=== PATIENT | female | born 1960 | race Two or more races ===

== ENCOUNTER 2021-02-12 23:54 | Emergency (ER) | payer MEDICAID ==
[~2021-02-12] VITALS: Ht 160 cm; Wt 59.0 kg
[2021-02-12 23:54] VITALS: BP_SYST 151
--- NOTE | 2021-02-12 23:54 | NUR ---
Patient ambulatory to bed 6 for evaluation
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
--- NOTE | 2021-02-13 00:19 | NUR ---
JOVANI Valladares at bedside examining patient.
[2021-02-13] MEDS ORDERED: OXYCODONE/ACETAMINOPHEN *10*mg/325 mg TABLET ONE (00:44)
[2021-02-13] MEDS: OXYCODONE/ACETAMINOPHEN 5-325 TABLET PO ONE (00:47)
--- NOTE | 2021-02-13 00:49 | NUR ---
patient medicated as ordered. Will observe for any adverse reaction. bed to low position srup. lab animal technologist at bedside to obtain blood for analysis.
[2021-02-13 01:51] LABS: HEMATOCRIT 39.8 % (36-48); HEMOGLOBIN 13.5 g/dL (12.0-16.0); MEAN CORPUSCULAR HEMOGLOBIN 31 pg (27-31); MEAN CORPUSCULAR VOLUME 91 fL (79.0-98.0); RED BLOOD CELL COUNT(AUTO) 4.39 MIL/uL (4.2-6.2)
[2021-02-13 01:52] LABS: BASOPHILS % (AUTO) 0.3 % (0.0-2.0); EOSINOPHILS % (AUTO) 0.2 % (0.0-4.0); LYMPHOCYTES # (AUTO) 1.5 K/uL (1.0-5.5); LYMPHOCYTES % (AUTO) 10.7 % (20.5-51.5); MEAN CORPUSCULAR HGB CONC 34 % (32-36); MONOCYTES % (AUTO) 4.2 % (1.7-9.3); NEUTROPHILS # (AUTO) 11.9 K/uL (1.8-7.7); NEUTROPHILS % (AUTO) 84.6 % (40.0-70.0); PLATELET COUNT (AUTO) 367 K/uL (130-430); RED CELL DISTRIBUTION WIDTH 13.6 % (9.0-15.0)
[2021-02-13 01:53] LABS: MONOCYTES # (AUTO) 0.6 K/uL (0.0-1.0); PROTHROMBIN TIME 10.1 SECS (9.5-12.5)
--- NOTE | 2021-02-13 02:31 | NUR ---
# 20 gauge angiocath placed to RAC. Use of asceptic technique. Opsite placed over site. Blood return noted. Flushed with 10 cc of normal saline. No evidence of infiltration noted. Patient tolerated well.
--- NOTE | 2021-02-13 04:30 | NUR ---
Patient resting quietly. No acute distress noted. Vital signs within normal range.
[2021-02-13 04:54] LABS: ANION GAP 9 (5-15); CALCIUM 8.9 mg/dL (8.4-11.0); CHLORIDE 102 mmol/L (98-107); CREATININE 0.74 mg/dL (0.55-1.30); GLUCOSE 107 mg/dL (70-99); POTASSIUM 3.4 mmol/L (3.5-5.1); SODIUM SERUM 140 mmol/L (136-145); UREA NITROGEN, BLOOD 15 mg/dL (8-21)
[2021-02-13 04:58] LABS: GFR AFRICAN AMERICAN 103 mL/min (>90)
[2021-02-13 05:00] LABS: ALANINE AMINOTRANSFERASE 20 U/L (12-78); ALBUMIN 3.8 g/dL (3.4-4.8); ASPARTATE AMINOTRANSFERASE 20 U/L (10-37); TOTAL BILIRUBIN 0.3 mg/dL (0.0-1.0)
[2021-02-13 05:10] LABS: BILIRUBIN,URINE NEGATIVE (NEGATIVE); BLOOD, URINE 3+ (NEGATIVE); CLARITY/URINE CLEAR (CLEAR); COLOR,URINE YELLOW (YELLOW); GLUCOSE,URINE NEGATIVE (NEGATIVE); KETONES,URINE 1+ (NEGATIVE); LEUKOCYTE ESTERASE ,URINE NEGATIVE (NEGATIVE); NITRITE, URINE NEGATIVE (NEGATIVE); PH,URINE 5.5 (5.0-8.0); PROTEIN URINE NEGATIVE (NEGATIVE); UROBILINOGEN,URINE 0.2 (0.2-1.0)
[2021-02-13 05:11] LABS: ALCOHOL, BLOOD < 3 mg/dL (<10)
[2021-02-13 05:54] VITALS: BP_SYST 113
[2021-02-13] MEDS: clonazePAM 0.5 MG TABLET PO ONE (05:54)
[2021-02-13] MEDS: ALPRAZolam 0.25 MG TABLET PO ONE (05:54)
--- NOTE | 2021-02-13 05:56 | NUR ---
Patient given written and verbal discharge instructions and verbalizes understanding. ER MD discussed with patient the results and treatment provided. Patient in stable condition. ID arm band removed. IV catheter removed intact and dressing applied, no active bleeding. Patient educated on pain management and to follow up with PMD. Pain Scale 5. Opportunity for questions provided and answered. Medication side effect fact sheet provided.
[2021-02-13 06:01] LABS: BARBITURATE, URINE NEGATIVE (NEG <=200)
[2021-02-13 06:02] LABS: METHAMPHETAMINES SCREEN,URINE POSITIVE (NEG <=500); URINE AMPHETAMINE POSITIVE (NEG <=500)
[2021-02-13 06:03] LABS: BENZODIAZEPINE, URINE NEGATIVE (NEG <=150); CANNABINOID, URINE POSITIVE (NEG <=50); COCAINE, URINE NEGATIVE (NEG <=150); OPIATE, URINE NEGATIVE (NEG <=100); PHENCYCLIDINE SCREEN,URINE NEGATIVE (NEG <=25); URINE METHADONE NEGATIVE (NEG <=200); URINE OXYCODONE SCREEN POSITIVE (NEG <=100)
[2021-02-13 06:04] LABS: UR TRICYCLIC ANTIDEPRESSANTS NEGATIVE (NEG <=300); URINE PROPOXYPHENE SCREEN NEGATIVE (NEG <=300)
[2021-02-13 06:32] LABS: BACTERIA,URINE FEW /HPF (None Seen); WBC,URINE NONE SEEN /HPF (0-3)
== END 2021-02-13 05:54 | disposition home or self-care (01) ==
LOC: SED 23:54
DX: S22.31XA Fracture of one rib, right side, initial encounter for closed fracture (principal); F15.988 Other stimulant use, unspecified with other stimulant-induced disorder; Z79.899 Other long term (current) drug therapy; V49.49XA Driver injured in collision with other motor vehicles in traffic accident, initial encounter; Y93.89 Activity, other specified; Y92.89 Other specified places as the place of occurrence of the external cause; Y99.8 Other external cause status
CPT/HCPCS: 36415; 71045; 71250; 74176; 76376; 80053; 80307; 81000; 85025; 85610; 86886; 86900; 86901; 93005; 99285; G0482; Q9967